=== PATIENT | female | born 1970 | race Caucasian/White ===

== ENCOUNTER 2016-10-09 17:17 | Emergency (ER) | payer OTHER ==
[~2016-10-09] VITALS: Wt 120.2 kg
[~2016-10-09 17:17] MED LIST: ACETAMINOPHEN; ALBUTEROL0.09 MG/A2 IH; AMITRIPTYLINE150 M1 PO; AMITRIPTYLINE50 MG PO; AMLODIPINE BESY1 TAB PO; AMOXICILLIN500 MG PO; ANAPROX DS550 MG PO; APRISO0.375 GM PO; ASACOL400 MG PO; ATIVAN0.5 MG PO; ATIVAN1 MG PO; ATROVENT I0.5 MG/2.5 INH; AZITHROMYCIN250 MG PO; AZITHROMYCIN500 MG PO; CARVEDILOL6.25 MG PO; CEFZIL500 MG PO; CELEXA40 MG PO; CITALOPRAM40 MG PO; CLARITIN10 MG PO; CLEOCIN HCL300 MG PO; COLCHICINE0.6 MG PO; COREG6.25 MG PO; CYCLOBENZAPRINE10 MG PO; DAYPRO600 M1 PO; DIFLUCAN150 MG PO; DITROPAN XL10 MG PO; DITROPAN XL5 MG PO; DONNATAL1 TAB PO; DOXYCYCLINE MO100 MG PO; EASIVENT CHAMBE1 KIT DEVI; EASY TOUCH; ELAVIL150 MG PO; FLAGYL500 MG PO; FLEXERIL10 MG PO; FLONASE0.05 MG/AC NS; FLUTICASON0.05 MG/A1 NAS; Fioricet 325 MG1 TAB PO; GLIPIZIDE ER2.5 MG PO; GOOD NEIGHBOR L10 MG PO; Glipizide2.5 MG PO; HYDRO; IBU800 M1 PO; IBU800 MG PO; IMURAN50 MG PO; INDOCIN25 MG; INDOCIN25 MG PO; LANTUS SOLOS100 U/M1 SC; LANTUS100 U/ML SC; LEVEMIR100 U/ML SC; LISINOPRIL30 MG PO; M2 MAGNESIUM100 MG PO; MAG-OX 400400 MG PO; MELATONIN1 MG PO; MELATONIN10 M2 PO; MELATONIN5 M2 PO; MELOXICAM7.5 MG PO; METFORMIN HYD1000 MG PO; METFORMIN1000 MG PO; NAPROSYN500 MG PO; NORVASC10 MG PO; NOVOLOG FLEX100 U/ML SC; NOVOLOG100 U/ML SC; OMEPRAZOLE40 MG PO; OXYBUTYNIN CHLO10 MG PO; OXYBUTYNIN CHLOR5 M1 PO; PHENERGAN12.5 M1 PO; PREDNICOT20 MG PO; PRILOSEC20 MG PO; PROAIR HFA0.09 MG/AC IH; PROVENTIL0.09 MG/AC IH; PULMICORT0.2 MG/ACT IH; REQUIP0.5 MG PO; RESTORIL30 MG PO; ROBITUSSIN AC 110 ML PO; ROBITUSSIN CF PO; ROBITUSSIN DM 105 ML PO; SALINE MIST 4545 ML NAS; SIMVASTATIN20 MG PO; SINGULAIR10 MG PO; SYMBICORT1 AE1 INH; TESSALON PERLE200 MG PO; TORADOL10 MG PO; VENTOLIN H0.09 MG/AC INH; VIBRAMYCIN100 MG PO; VICO10300 PO; VICODIN 5/500 505 MG PO; VICODIN ES 7501 TA1 PO; Ventolin 02.5 MG/3 M INH; XANAX1 MG PO; ZANAFLEX4 M1 PO; ZITHROMAX Z PA250 MG PO; ZITHROMAX Z-PA250 MG PO; ZITHROMAX250 MG PO; ZOCOR20 MG PO; ZOFRAN4 MG PO; ZYLOPRIM300 MG PO; [UNRECOGNIZED DRUG - OTHER]; [UNRECOGNIZED DRUG - SUPPLY]
[2016-10-09] MEDS ORDERED: VALTREX1 GM PO (18:44)
[2016-10-09] MEDS ORDERED: MEDROL DOSEPAK4 MG PO (18:44)
[2016-10-09] MEDS ORDERED: ARTIFICIAL TEA1 EACH OP (18:44)
[2016-11-12] MEDS ORDERED: CLARITIN10 MG PO (18:41)
[2016-11-12] MEDS ORDERED: EFFEXOR XR150 MG PO (18:42)
[2016-11-12] MEDS ORDERED: DOXEPIN50 MG PO (18:42)
[2016-11-12] MEDS ORDERED: KLONOPIN1 M1 PO (18:43)
[2016-11-12] MEDS ORDERED: KLONOPIN2 M1 PO (18:43)
[2016-11-12] MEDS ORDERED: BUSPIRONE10 MG PO (18:44)
[2016-11-12] MEDS ORDERED: NEURONTIN800 MG PO (18:45)
[2016-11-12] MEDS ORDERED: VITAMIN D1000 IU PO (18:46)
[2016-11-12] MEDS ORDERED: REXULTI3 MG PO (18:46)
[2016-11-12] MEDS ORDERED: CLONIDINE0.2 MG PO (18:59)
[2016-11-14] MEDS ORDERED: D-1000 185 MG-11 TAB PO (09:37)
[2016-11-14] MEDS ORDERED: CLARITIN10 MG PO (09:37)
[2016-11-14] MEDS ORDERED: B121000 MCG/1 IM (09:37)
[2016-11-14] MEDS ORDERED: PREDNISONE10 MG PO (09:37)
[2016-11-14] MEDS ORDERED: LEVAQUIN750 M1 PO (09:37)
[2016-11-14] MEDS ORDERED: VITAMIN B-12100 MCG PO (10:01)
== END 2016-10-09 18:50 | disposition home or self-care (01) ==
LOC: ED 17:17
DX: G51.0 Bell's palsy (principal); R06.02 Shortness of breath; Z88.0 Allergy status to penicillin; Z88.1 Allergy status to other antibiotic agents; Z88.6 Allergy status to analgesic agent; Z88.8 Allergy status to other drugs, medicaments and biological substances; Z88.2 Allergy status to sulfonamides; Z79.899 Other long term (current) drug therapy

== ENCOUNTER → 2017-06-11 | Outpatient (CLI) | payer OTHER ==
[~2017-06-11] MED LIST changes: +ARTIFICIAL TEA1 EACH OP; +B121000 MCG/1 IM; +BUSPIRONE10 MG PO; +CLONIDINE0.2 MG PO; +D-1000 185 MG-11 TAB PO; +DOXEPIN50 MG PO; +EFFEXOR XR150 MG PO; +KLONOPIN1 M1 PO; +KLONOPIN2 M1 PO; +LEVAQUIN750 M1 PO; +MEDROL DOSEPAK4 MG PO; +NEURONTIN800 MG PO; +PREDNISONE10 MG PO; +REXULTI3 MG PO; +VALTREX1 GM PO; +VITAMIN B-12100 MCG PO; +VITAMIN D1000 IU PO
[2017-06-11 12:12] LABS: BASO # 0.1 10*3/uL (0.0-0.1); BASO % 0.7 % (0.0-1.0); EOS # 0.3 10*3/uL (0.0-0.4); EOS % 1.7 % (1.0-4.0); HEMATOCRIT 44.8 % (37.0-47.0); HEMOGLOBIN 14.4 g/dl (12.0-16.0); LYMPH # 3.5 10*3/uL (1.3-4.4); LYMPH % 23.2 % (27.0-41.0); MEAN CELL VOLUME 80.3 fl (81.0-99.0); MEAN CORPUSCULAR HGB 25.8 pg (27.0-31.0); MEAN CORPUSCULAR HGB CONC 32.1 g/dl (33.0-37.0); MEAN PLATELET VOLUME 11.3 fl (9.6-12.3); MONO # 0.9 10*3/uL (0.1-1.0); MONO % 5.7 % (3.0-9.0); NEUT # 10.2 10*3/uL (2.3-7.9); NEUT % 68.2 % (47.0-73.0); PLATELET COUNT AUTOMATED 348 10*3/uL (130-400); RED BLOOD COUNT 5.58 10*6/uL (4.10-5.10); RED CELL DISTRI WIDTH 15.2 % (0-14.5); WHITE BLOOD COUNT 14.9 10*3/uL (4.8-10.8)
[2017-06-11 12:45] LABS: ALBUMIN 3.8 gm/dl (3.1-4.5); ALKALINE PHOSPHATASE 104 U/L (45-117); BUN 11 mg/dl (7-24); CHLORIDE 102 mmol/L (98-107); CHOLESTEROL 164 mg/dL (<200); CREATININE 0.74 mg/dL (0.55-1.02); HDL CHOLESTEROL 43 mg/dl (40-60); LDL CHOLESTEROL 65 mg/dL (9-159); POTASSIUM 4.2 mmol/L (3.5-5.1); SGOT/AST 10 IU/L (3-35); SGPT/ALT 17 U/L (12-78); SODIUM 139 mmol/L (136-145); TOTAL PROTEIN 8.1 gm/dL (6.4-8.2); TRIGLYCERIDES 281 mg/dl (<150); VLDL CHOLESTEROL 56 mg/dL (6-40)
[2017-06-11 13:36] LABS: VITAMIN D, 25-HYDROXY 6.3 ng/mL (30-100)
== END | disposition home or self-care (01) ==
LOC: LAB 01:30 → RESCLI 01:30
PROVIDERS: Internal Medicine Hospice and Palliative Medicine
DX: E11.65 Type 2 diabetes mellitus with hyperglycemia (principal); E55.9 Vitamin D deficiency, unspecified; E78.2 Mixed hyperlipidemia; E53.8 Deficiency of other specified B group vitamins; K21.9 Gastro-esophageal reflux disease without esophagitis; I10 Essential (primary) hypertension; F41.8 Other specified anxiety disorders; N32.81 Overactive bladder; J30.2 Other seasonal allergic rhinitis; E66.01 Morbid (severe) obesity due to excess calories; M1A.09X0 Idiopathic chronic gout, multiple sites, without tophus (tophi); M19.90 Unspecified osteoarthritis, unspecified site

== ENCOUNTER 2017-07-19 22:18 | Emergency (ER) | payer OTHER ==
[~2017-07-19] VITALS: Ht 154.9 cm; Wt 108.4 kg
[2017-07-19] MEDS ORDERED: TRAMADOL HCL50 MG PO (23:59)
== END 2017-07-19 23:48 | disposition home or self-care (01) ==
LOC: ED 22:18
DX: S05.01XA Injury of conjunctiva and corneal abrasion without foreign body, right eye, initial encounter (principal); K21.9 Gastro-esophageal reflux disease without esophagitis; E78.00 Pure hypercholesterolemia, unspecified; M10.9 Gout, unspecified; G43.909 Migraine, unspecified, not intractable, without status migrainosus; E66.01 Morbid (severe) obesity due to excess calories; E11.65 Type 2 diabetes mellitus with hyperglycemia; I10 Essential (primary) hypertension; Z90.89 Acquired absence of other organs; Z98.51 Tubal ligation status; Z98.890 Other specified postprocedural states; Z79.899 Other long term (current) drug therapy; Z88.1 Allergy status to other antibiotic agents; Z88.5 Allergy status to narcotic agent; Z91.040 Latex allergy status; Z88.6 Allergy status to analgesic agent; Z88.8 Allergy status to other drugs, medicaments and biological substances; Z88.0 Allergy status to penicillin; Z79.4 Long term (current) use of insulin; X58.XXXA Exposure to other specified factors, initial encounter; Y93.89 Activity, other specified; Y92.89 Other specified places as the place of occurrence of the external cause; Y99.9 Unspecified external cause status

== ENCOUNTER 2017-07-24 16:17 | Emergency (ER) | payer OTHER ==
[~2017-07-24] VITALS: Ht 154.9 cm; Wt 108.4 kg
[~2017-07-24 16:17] MED LIST changes: +TRAMADOL HCL50 MG PO
[2017-07-24] MEDS ORDERED: AMLODIPINE BESY10 MG PO (17:00)
[2017-07-24] MEDS ORDERED: DOXEPIN HCL50 MG PO (17:03)
[2017-07-25 07:07] LABS: HEPATITIS B SURFACE AG Negative (Negative); HEPATITIS C AB <0.1 (0.0-0.9); HIV 1+2 AB + HIV1 P24 AG Non Reactive (Non Reactive)
== END 2017-07-24 16:41 | disposition home or self-care (01) ==
LOC: ED 16:17
PROVIDERS: Physician Assistant
DX: S61.031A Puncture wound without foreign body of right thumb without damage to nail, initial encounter (principal); W27.3XXA Contact with needle (sewing), initial encounter; Y93.E5 Activity, floor mopping and cleaning; Y92.59 Other trade areas as the place of occurrence of the external cause; Y99.8 Other external cause status; Z88.1 Allergy status to other antibiotic agents; Z88.6 Allergy status to analgesic agent; Z88.0 Allergy status to penicillin; Z88.2 Allergy status to sulfonamides; Z91.040 Latex allergy status; Z88.8 Allergy status to other drugs, medicaments and biological substances

== ENCOUNTER → 2017-08-14 | Outpatient (CLI) | payer OTHER ==
[~2017-08-14] MED LIST changes: +AMLODIPINE BESY10 MG PO; +DOXEPIN HCL50 MG PO
[2017-08-14 12:06] LABS: BASO # 0.1 10*3/uL (0.0-0.1); BASO % 0.7 % (0.0-1.0); EOS # 0.3 10*3/uL (0.0-0.4); EOS % 2.5 % (1.0-4.0); HEMATOCRIT 40.8 % (37.0-47.0); HEMOGLOBIN 13.1 g/dl (12.0-16.0); LYMPH # 2.5 10*3/uL (1.3-4.4); LYMPH % 23.8 % (27.0-41.0); MEAN CELL VOLUME 79.5 fl (81.0-99.0); MEAN CORPUSCULAR HGB 25.5 pg (27.0-31.0); MEAN CORPUSCULAR HGB CONC 32.1 g/dl (33.0-37.0); MEAN PLATELET VOLUME 11.4 fl (9.6-12.3); MONO # 0.6 10*3/uL (0.1-1.0); MONO % 5.8 % (3.0-9.0); NEUT # 7.1 10*3/uL (2.3-7.9); NEUT % 66.6 % (47.0-73.0); PLATELET COUNT AUTOMATED 299 10*3/uL (130-400); RED BLOOD COUNT 5.13 10*6/uL (4.10-5.10); RED CELL DISTRI WIDTH 14.6 % (0-14.5); WHITE BLOOD COUNT 10.6 10*3/uL (4.8-10.8)
[2017-08-14 12:27] LABS: THYROID STIM HORMONE (HS) 3.16 uIU/ml (0.358-4.75)
[2017-08-15 08:10] LABS: RHEUMATOID ARTHRITIS FACTOR 20.5 IU/mL (0.0-13.9)
[2017-08-15 11:03] LABS: SJOGREN ANTI-SS-A <0.2 AI (0.0-0.9); SJOREN AB, ANTI-SS-B <0.2 AI (0.0-0.9)
[2017-08-15 17:09] LABS: ANGIOTENSIN-CONVERTING ENZYME 11 U/L (14-82)
== END | disposition home or self-care (01) ==
LOC: LAB 11:22
PROVIDERS: Optometrist
DX: H16.223 Keratoconjunctivitis sicca, not specified as Sjogren's, bilateral (principal)

== ENCOUNTER 2017-11-15 18:35 | Emergency (ER) | payer OTHER ==
[~2017-11-15] VITALS: Wt 113.4 kg
[2017-11-15] MEDS ORDERED: ALLOPURINOL300 MG PO (18:38)
[2017-11-15 19:37] LABS: BASO # 0.1 10*3/uL (0.0-0.1); BASO % 0.6 % (0.0-1.0); EOS # 0.4 10*3/uL (0.0-0.4); EOS % 3.4 % (1.0-4.0); HEMATOCRIT 41.8 % (37.0-47.0); HEMOGLOBIN 13.6 g/dl (12.0-16.0); LYMPH # 3.1 10*3/uL (1.3-4.4); LYMPH % 25.3 % (27.0-41.0); MEAN CELL VOLUME 80.5 fl (81.0-99.0); MEAN CORPUSCULAR HGB 26.2 pg (27.0-31.0); MEAN CORPUSCULAR HGB CONC 32.5 g/dl (33.0-37.0); MEAN PLATELET VOLUME 11.3 fl (9.6-12.3); MONO # 0.8 10*3/uL (0.1-1.0); MONO % 6.6 % (3.0-9.0); NEUT # 7.7 10*3/uL (2.3-7.9); NEUT % 63.3 % (47.0-73.0); PLATELET COUNT AUTOMATED 298 10*3/uL (130-400); RED BLOOD COUNT 5.19 10*6/uL (4.10-5.10); RED CELL DISTRI WIDTH 13.6 % (0-14.5); WHITE BLOOD COUNT 12.2 10*3/uL (4.8-10.8)
[2017-11-15 19:58] LABS: ALBUMIN 3.5 gm/dl (3.1-4.5); ALKALINE PHOSPHATASE 120 U/L (45-117); BUN 9 mg/dl (7-24); CHLORIDE 98 mmol/L (98-107); CREATININE 0.98 mg/dL (0.55-1.02); POTASSIUM 4.1 mmol/L (3.5-5.1); SGOT/AST 45 IU/L (3-35); SGPT/ALT 37 U/L (12-78); SODIUM 134 mmol/L (136-145); TOTAL PROTEIN 7.3 gm/dL (6.4-8.2)
[2017-11-15] MEDS ORDERED: DUONEB 3 MG/3 ML3 M1 INH (20:54)
[2017-11-15] MEDS ORDERED: NEBULIZER (20:54)
[2017-11-15] MEDS ORDERED: CLINDAMYCIN HC300 MG PO (20:55)
[2017-11-15] MEDS ORDERED: CEPHALEXIN500 M1 PO (20:55)
[2017-11-15] MEDS ORDERED: DIFLUCAN150 MG PO (20:55)
== END 2017-11-15 20:57 | disposition home or self-care (01) ==
LOC: ED 18:35
PROVIDERS: Nurse Practitioner Family
DX: J40 Bronchitis, not specified as acute or chronic (principal); A46 Erysipelas; J44.1 Chronic obstructive pulmonary disease with (acute) exacerbation; K21.9 Gastro-esophageal reflux disease without esophagitis; I10 Essential (primary) hypertension; E66.01 Morbid (severe) obesity due to excess calories; E11.9 Type 2 diabetes mellitus without complications; G51.0 Bell's palsy; Z88.8 Allergy status to other drugs, medicaments and biological substances

== ENCOUNTER 2017-11-22 17:41 | Emergency (ER) | payer OTHER ==
[~2017-11-22] VITALS: Ht 154.9 cm; Wt 124.7 kg
[~2017-11-22 17:41] MED LIST changes: +ALLOPURINOL300 MG PO; +CEPHALEXIN500 M1 PO; +CLINDAMYCIN HC300 MG PO; +DUONEB 3 MG/3 ML3 M1 INH; +NEBULIZER
== END 2017-11-22 19:00 | disposition home or self-care (01) ==
LOC: ED 17:41
DX: M25.551 Pain in right hip (principal); E11.9 Type 2 diabetes mellitus without complications; Z88.0 Allergy status to penicillin; Z88.1 Allergy status to other antibiotic agents; Z88.2 Allergy status to sulfonamides; Z88.8 Allergy status to other drugs, medicaments and biological substances; Z91.040 Latex allergy status; Z88.6 Allergy status to analgesic agent; Z79.899 Other long term (current) drug therapy

== ENCOUNTER → 2017-12-08 | Outpatient (CLI) | payer OTHER ==
[2017-12-08 16:24] LABS: FREE T4 1.3 ng/dl (0.76-1.46); THYROID STIM HORMONE (HS) 1.22 uIU/ml (0.358-4.75)
[2017-12-09 14:08] LABS: ANA DIRECT Positive (Negative); SJOGREN ANTI-SS-A <0.2 AI (0.0-0.9); SJOREN AB, ANTI-SS-B <0.2 AI (0.0-0.9)
[2017-12-11 00:02] LABS: CCP ANTIBODIES IGG/IGA 25 units (0-19)
== END | disposition home or self-care (01) ==
LOC: LAB 02:13 → RESCLI 02:13
PROVIDERS: Emergency Medicine
DX: E11.9 Type 2 diabetes mellitus without complications (principal); I10 Essential (primary) hypertension; K21.9 Gastro-esophageal reflux disease without esophagitis; M19.90 Unspecified osteoarthritis, unspecified site; G62.9 Polyneuropathy, unspecified

== ENCOUNTER → 2017-12-11 | Outpatient (CLI) | payer OTHER ==
[2017-12-11 13:13] LABS: BASO # 0.1 10*3/uL (0.0-0.1); BASO % 0.9 % (0.0-1.0); EOS # 0.3 10*3/uL (0.0-0.4); EOS % 3.1 % (1.0-4.0); HEMATOCRIT 41.5 % (37.0-47.0); HEMOGLOBIN 13.5 g/dl (12.0-16.0); LYMPH # 2.5 10*3/uL (1.3-4.4); LYMPH % 30.3 % (27.0-41.0); MEAN CELL VOLUME 81.4 fl (81.0-99.0); MEAN CORPUSCULAR HGB 26.5 pg (27.0-31.0); MEAN CORPUSCULAR HGB CONC 32.5 g/dl (33.0-37.0); MEAN PLATELET VOLUME 11.2 fl (9.6-12.3); MONO # 0.6 10*3/uL (0.1-1.0); NEUT # 4.8 10*3/uL (2.3-7.9); PLATELET COUNT AUTOMATED 277 10*3/uL (130-400); RED CELL DISTRI WIDTH 13.4 % (0-14.5); WHITE BLOOD COUNT 8.2 10*3/uL (4.8-10.8)
[2017-12-11 13:37] LABS: ALBUMIN 3.6 gm/dl (3.1-4.5); ALKALINE PHOSPHATASE 111 U/L (45-117); BUN 7 mg/dl (7-24); CHLORIDE 97 mmol/L (98-107); CREATININE 0.71 mg/dL (0.55-1.02); POTASSIUM 4.3 mmol/L (3.5-5.1); SGOT/AST 48 IU/L (3-35); SGPT/ALT 44 U/L (12-78); SODIUM 134 mmol/L (136-145); TOTAL PROTEIN 7.1 gm/dL (6.4-8.2)
[2017-12-11 14:12] LABS: VITAMIN D, 25-HYDROXY 8.9 ng/mL (30-100)
== END | disposition home or self-care (01) ==
LOC: LAB 12:48
PROVIDERS: Emergency Medicine
DX: E11.9 Type 2 diabetes mellitus without complications (principal); K21.9 Gastro-esophageal reflux disease without esophagitis; E55.9 Vitamin D deficiency, unspecified; E53.8 Deficiency of other specified B group vitamins

== ENCOUNTER 2018-02-07 21:43 | Emergency (ER) | payer OTHER ==
[~2018-02-07] VITALS: Ht 152.4 cm; Wt 130.2 kg
[2018-02-07] MEDS ORDERED: TOBRADEX 0.3-0.15 ML OPH (21:56)
[2018-02-07] MEDS ORDERED: VITAMIN D50000 UNIT PO (21:56)
[2018-02-07] MEDS ORDERED: BASAG SOL SQ (21:58)
[2018-02-07] MEDS ORDERED: NOVOLOG100 UNIT/1 SQ (21:58)
[2018-02-07 22:21] LABS: BASO # 0.1 10*3/uL (0.0-0.1); BASO % 0.7 % (0.0-1.0); EOS # 0.3 10*3/uL (0.0-0.4); EOS % 2.9 % (1.0-4.0); HEMATOCRIT 39.7 % (37.0-47.0); HEMOGLOBIN 12.5 g/dl (12.0-16.0); LYMPH % 29.8 % (27.0-41.0); MEAN CELL VOLUME 78.6 fl (81.0-99.0); MEAN CORPUSCULAR HGB 24.8 pg (27.0-31.0); MEAN CORPUSCULAR HGB CONC 31.5 g/dl (33.0-37.0); MEAN PLATELET VOLUME 10.8 fl (9.6-12.3); MONO # 0.7 10*3/uL (0.1-1.0); NEUT % 58.9 % (47.0-73.0); PLATELET COUNT AUTOMATED 287 10*3/uL (130-400); RED BLOOD COUNT 5.05 10*6/uL (4.10-5.10); WHITE BLOOD COUNT 10.1 10*3/uL (4.8-10.8)
[2018-02-07 22:33] LABS: ACT PARTIAL THROMBO TIME 23.8 SECONDS (20.8-31.5)
[2018-02-07 22:38] LABS: ALBUMIN 3.4 gm/dl (3.1-4.5); ALKALINE PHOSPHATASE 102 U/L (45-117); BUN 7 mg/dl (7-24); CHLORIDE 102 mmol/L (98-107); CREATININE 0.64 mg/dL (0.55-1.02); POTASSIUM 3.4 mmol/L (3.5-5.1); SGOT/AST 70 IU/L (3-35); SGPT/ALT 51 U/L (12-78); SODIUM 138 mmol/L (136-145); TOTAL PROTEIN 6.9 gm/dL (6.4-8.2)
[2018-02-07 22:39] LABS: TROPONIN I < 0.015 ng/ml (<0.045)
== END 2018-02-08 02:03 | disposition left against medical advice (07) ==
LOC: ED 21:43
PROVIDERS: Emergency Medicine
DX: R07.9 Chest pain, unspecified (principal); F41.9 Anxiety disorder, unspecified; R06.02 Shortness of breath; D89.89 Other specified disorders involving the immune mechanism, not elsewhere classified; R60.9 Edema, unspecified; Z98.51 Tubal ligation status; Z90.89 Acquired absence of other organs; Z79.4 Long term (current) use of insulin; Z79.899 Other long term (current) drug therapy; Z88.1 Allergy status to other antibiotic agents; Z88.5 Allergy status to narcotic agent; Z88.0 Allergy status to penicillin; Z91.040 Latex allergy status; Z88.3 Allergy status to other anti-infective agents

== ENCOUNTER → 2018-03-09 | Outpatient (CLI) | payer OTHER ==
[~2018-03-09] MED LIST changes: +BASAG SOL SQ; +KETOROLAC10 MG PO; +NOVOLOG100 UNIT/1 SQ; +TOBRADEX 0.3-0.15 ML OPH; +VITAMIN D50000 UNIT PO
[2018-03-09 15:20] LABS: BASO # 0.1 10*3/uL (0.0-0.1); BASO % 0.8 % (0.0-1.0); EOS # 0.2 10*3/uL (0.0-0.4); EOS % 1.6 % (1.0-4.0); HEMATOCRIT 41.7 % (37.0-47.0); LYMPH % 26.8 % (27.0-41.0); MEAN CELL VOLUME 78.2 fl (81.0-99.0); MEAN CORPUSCULAR HGB 24.4 pg (27.0-31.0); MEAN CORPUSCULAR HGB CONC 31.2 g/dl (33.0-37.0); MEAN PLATELET VOLUME 10.7 fl (9.6-12.3); MONO # 0.6 10*3/uL (0.1-1.0); MONO % 5.4 % (3.0-9.0); NEUT # 7.3 10*3/uL (2.3-7.9); NEUT % 64.8 % (47.0-73.0); PLATELET COUNT AUTOMATED 304 10*3/uL (130-400); RED BLOOD COUNT 5.33 10*6/uL (4.10-5.10); RED CELL DISTRI WIDTH 15.2 % (0-14.5); WHITE BLOOD COUNT 11.2 10*3/uL (4.8-10.8)
[2018-03-09 15:52] LABS: ALBUMIN 3.7 gm/dl (3.1-4.5); ALKALINE PHOSPHATASE 104 U/L (45-117); BUN 6 mg/dl (7-24); CHLORIDE 99 mmol/L (98-107); CREATININE 0.62 mg/dL (0.55-1.02); HDL CHOLESTEROL 36 mg/dl (40-60); POTASSIUM 3.9 mmol/L (3.5-5.1); SODIUM 135 mmol/L (136-145); TOTAL PROTEIN 7.4 gm/dL (6.4-8.2)
[2018-03-09 15:58] LABS: CHOLESTEROL 115 mg/dL (<200); LDL CHOLESTEROL 33 mg/dL (9-159); SGOT/AST 99 IU/L (3-35); SGPT/ALT 43 U/L (12-78); TRIGLYCERIDES 230 mg/dl (<150); VITAMIN D, 25-HYDROXY 23.8 ng/mL (30-100); VLDL CHOLESTEROL 46 mg/dL (6-40)
== END | disposition home or self-care (01) ==
LOC: RESCLI 04:06
PROVIDERS: Internal Medicine Hospice and Palliative Medicine
DX: I10 Essential (primary) hypertension (principal); K21.9 Gastro-esophageal reflux disease without esophagitis; E78.2 Mixed hyperlipidemia; F41.8 Other specified anxiety disorders; E11.65 Type 2 diabetes mellitus with hyperglycemia; J44.0 Chronic obstructive pulmonary disease with (acute) lower respiratory infection; E66.01 Morbid (severe) obesity due to excess calories; J30.2 Other seasonal allergic rhinitis; E55.9 Vitamin D deficiency, unspecified; M19.90 Unspecified osteoarthritis, unspecified site; E53.8 Deficiency of other specified B group vitamins; M1A.09X0 Idiopathic chronic gout, multiple sites, without tophus (tophi); N32.81 Overactive bladder; F43.10 Post-traumatic stress disorder, unspecified; G62.9 Polyneuropathy, unspecified; L03.811 Cellulitis of head [any part, except face]; F32.9 Major depressive disorder, single episode, unspecified; Z88.0 Allergy status to penicillin; Z88.2 Allergy status to sulfonamides

== ENCOUNTER 2018-03-10 18:00 | Emergency (ER) | payer OTHER ==
[~2018-03-10 18:00] MED LIST changes: -KETOROLAC10 MG PO
[2018-03-10] MEDS ORDERED: NAPROSYN500 MG PO (18:06)
[2018-03-10] MEDS ORDERED: CEPHALEXIN500 M1 PO (18:06)
== END 2018-03-10 18:12 | disposition home or self-care (01) ==
LOC: ED 18:00
DX: L02.811 Cutaneous abscess of head [any part, except face] (principal); Z98.51 Tubal ligation status; Z79.4 Long term (current) use of insulin; Z88.2 Allergy status to sulfonamides; Z88.1 Allergy status to other antibiotic agents; Z91.040 Latex allergy status; Z88.5 Allergy status to narcotic agent; Z88.0 Allergy status to penicillin

== ENCOUNTER 2018-04-06 20:40 | Emergency (ER) | payer OTHER ==
[~2018-04-06] VITALS: Ht 162.5 cm; Wt 108.9 kg
[2018-04-06] MEDS ORDERED: CLINDAMYCIN HC300 MG PO (21:20)
[2018-04-06] MEDS ORDERED: KETOROLAC10 MG PO (21:20)
== END 2018-04-06 22:00 | disposition home or self-care (01) ==
LOC: ED 20:40
DX: L08.9 Local infection of the skin and subcutaneous tissue, unspecified (principal); K21.9 Gastro-esophageal reflux disease without esophagitis; G43.909 Migraine, unspecified, not intractable, without status migrainosus; E11.65 Type 2 diabetes mellitus with hyperglycemia; I10 Essential (primary) hypertension; Z98.51 Tubal ligation status; Z98.890 Other specified postprocedural states; Z90.89 Acquired absence of other organs; Z79.899 Other long term (current) drug therapy; Z79.4 Long term (current) use of insulin; Z88.0 Allergy status to penicillin; Z88.2 Allergy status to sulfonamides; Z88.1 Allergy status to other antibiotic agents; Z91.040 Latex allergy status; Z88.6 Allergy status to analgesic agent; Z86.14 Personal history of Methicillin resistant Staphylococcus aureus infection

== ENCOUNTER → 2018-06-09 | Outpatient (CLI) | payer OTHER ==
[~2018-06-09] MED LIST changes: +KETOROLAC10 MG PO
== END | disposition home or self-care (01) ==
LOC: RESCLI 01:10 → RAD 01:10 → RESCLI 10:01
DX: M79.641 Pain in right hand (principal); I10 Essential (primary) hypertension; K21.9 Gastro-esophageal reflux disease without esophagitis; F41.8 Other specified anxiety disorders; J44.0 Chronic obstructive pulmonary disease with (acute) lower respiratory infection; N32.81 Overactive bladder; J30.2 Other seasonal allergic rhinitis; E66.01 Morbid (severe) obesity due to excess calories; E78.2 Mixed hyperlipidemia; E55.9 Vitamin D deficiency, unspecified; E11.65 Type 2 diabetes mellitus with hyperglycemia; M19.90 Unspecified osteoarthritis, unspecified site; E53.8 Deficiency of other specified B group vitamins; M1A.09X0 Idiopathic chronic gout, multiple sites, without tophus (tophi); F43.10 Post-traumatic stress disorder, unspecified; G62.9 Polyneuropathy, unspecified; G44.219 Episodic tension-type headache, not intractable; B37.3 Candidiasis of vulva and vagina; Z79.899 Other long term (current) drug therapy; Z88.0 Allergy status to penicillin; Z88.8 Allergy status to other drugs, medicaments and biological substances

== ENCOUNTER 2018-07-06 22:55 | Emergency (ER) | payer OTHER ==
[~2018-07-06] VITALS: Ht 154.9 cm; Wt 124.7 kg
[2018-07-06] MEDS ORDERED: CLINDAMYCIN HC300 MG PO (23:36)
[2018-07-06] MEDS ORDERED: CEPHALEXIN500 M1 PO (23:36)
== END 2018-07-06 23:40 | disposition home or self-care (01) ==
LOC: ED 22:55
DX: L03.211 Cellulitis of face (principal); R60.0 Localized edema; J44.9 Chronic obstructive pulmonary disease, unspecified; I10 Essential (primary) hypertension; K21.9 Gastro-esophageal reflux disease without esophagitis; E78.00 Pure hypercholesterolemia, unspecified; G43.909 Migraine, unspecified, not intractable, without status migrainosus; E66.01 Morbid (severe) obesity due to excess calories; E11.9 Type 2 diabetes mellitus without complications; Z88.1 Allergy status to other antibiotic agents; Z88.5 Allergy status to narcotic agent; Z88.0 Allergy status to penicillin; Z88.2 Allergy status to sulfonamides; Z91.040 Latex allergy status; Z88.8 Allergy status to other drugs, medicaments and biological substances; Z79.899 Other long term (current) drug therapy; Z79.84 Long term (current) use of oral hypoglycemic drugs; Z98.890 Other specified postprocedural states

== ENCOUNTER 2018-09-05 15:26 | Emergency (ER) | payer OTHER ==
[~2018-09-05] VITALS: Wt 125.6 kg
[2018-09-05 15:47] LABS: BILIRUBIN NEGATIVE (NEGATIVE); BLOOD 1+ (NEGATIVE); CLARITY CLEAR (CLEAR); COLOR YELLOW (YELLOW); GLUCOSE 3+ (NEGATIVE); KETONE 1+ (NEGATIVE); LEUKO ESTERASE NEGATIVE (NEGATIVE); NITRITE NEGATIVE (NEGATIVE); SPECIFIC GRAVITY 1.015 (1.005-1.030); UROBILINOGEN 0.2 E.U./dl (0.2-1.0)
[2018-09-05 15:50] LABS: BASO # 0.1 10*3/uL (0.0-0.1); BASO % 0.7 % (0.0-1.0); EOS # 0.2 10*3/uL (0.0-0.4); EOS % 1.7 % (1.0-4.0); HEMATOCRIT 44.5 % (37.0-47.0); HEMOGLOBIN 13.7 g/dl (12.0-16.0); LYMPH # 2.8 10*3/uL (1.3-4.4); LYMPH % 20.1 % (27.0-41.0); MEAN CELL VOLUME 75.2 fl (81.0-99.0); MEAN CORPUSCULAR HGB 23.1 pg (27.0-31.0); MEAN CORPUSCULAR HGB CONC 30.8 g/dl (33.0-37.0); MEAN PLATELET VOLUME 10.6 fl (9.6-12.3); MONO # 0.8 10*3/uL (0.1-1.0); MONO % 5.7 % (3.0-9.0); PLATELET COUNT AUTOMATED 367 10*3/uL (130-400); RED BLOOD COUNT 5.92 10*6/uL (4.10-5.10); WHITE BLOOD COUNT 14.1 10*3/uL (4.8-10.8)
[2018-09-05 15:59] LABS: BACTERIA TRACE
[2018-09-05 16:09] LABS: ALBUMIN 3.8 gm/dl (3.1-4.5); ALKALINE PHOSPHATASE 117 U/L (45-117); BUN 9 mg/dl (7-24); CHLORIDE 101 mmol/L (98-107); CREATININE 0.71 mg/dL (0.55-1.02); POTASSIUM 4.2 mmol/L (3.5-5.1); SGOT/AST 66 IU/L (3-35); SGPT/ALT 54 U/L (12-78); SODIUM 139 mmol/L (136-145); TOTAL PROTEIN 8.4 gm/dL (6.4-8.2)
[2018-09-05] MEDS ORDERED: ZOFRAN4 MG PO (17:25)
== END 2018-09-05 17:28 | disposition home or self-care (01) ==
LOC: ED 15:26
PROVIDERS: Nurse Practitioner Family
DX: R31.9 Hematuria, unspecified (principal); I10 Essential (primary) hypertension; J44.9 Chronic obstructive pulmonary disease, unspecified; K21.9 Gastro-esophageal reflux disease without esophagitis; E78.00 Pure hypercholesterolemia, unspecified; G43.909 Migraine, unspecified, not intractable, without status migrainosus; E66.01 Morbid (severe) obesity due to excess calories; E11.9 Type 2 diabetes mellitus without complications; Z88.1 Allergy status to other antibiotic agents; Z88.6 Allergy status to analgesic agent; Z88.8 Allergy status to other drugs, medicaments and biological substances; Z79.899 Other long term (current) drug therapy; Z79.84 Long term (current) use of oral hypoglycemic drugs; Z79.4 Long term (current) use of insulin; Z98.890 Other specified postprocedural states

== ENCOUNTER → 2018-09-22 | Outpatient (CLI) | payer OTHER | END | disposition home or self-care (01) | LOC: RESCLI 04:52 | DX: J44.0 Chronic obstructive pulmonary disease with (acute) lower respiratory infection (principal); I10 Essential (primary) hypertension; N32.81 Overactive bladder; K21.9 Gastro-esophageal reflux disease without esophagitis; F41.8 Other specified anxiety disorders; J30.2 Other seasonal allergic rhinitis; E66.01 Morbid (severe) obesity due to excess calories; E78.2 Mixed hyperlipidemia; E55.9 Vitamin D deficiency, unspecified; E11.65 Type 2 diabetes mellitus with hyperglycemia; M19.90 Unspecified osteoarthritis, unspecified site; E53.8 Deficiency of other specified B group vitamins; M1A.09X0 Idiopathic chronic gout, multiple sites, without tophus (tophi); F43.10 Post-traumatic stress disorder, unspecified; G62.9 Polyneuropathy, unspecified; G44.219 Episodic tension-type headache, not intractable; M25.561 Pain in right knee; Z79.899 Other long term (current) drug therapy; Z79.84 Long term (current) use of oral hypoglycemic drugs; Z88.0 Allergy status to penicillin; Z88.2 Allergy status to sulfonamides; Z91.040 Latex allergy status; Z91.030 Bee allergy status; Z88.8 Allergy status to other drugs, medicaments and biological substances; Z91.041 Radiographic dye allergy status ==

== ENCOUNTER 2018-11-17 20:09 | Emergency (ER) | payer OTHER ==
[2018-11-17 20:36] LABS: BASO # 0.1 10*3/uL (0.0-0.1); BASO % 0.4 % (0.0-1.0); EOS # 0.3 10*3/uL (0.0-0.4); EOS % 2.6 % (1.0-4.0); HEMATOCRIT 41.3 % (37.0-47.0); HEMOGLOBIN 12.7 g/dl (12.0-16.0); LYMPH # 2.4 10*3/uL (1.3-4.4); LYMPH % 20.6 % (27.0-41.0); MEAN CELL VOLUME 76.1 fl (81.0-99.0); MEAN CORPUSCULAR HGB 23.4 pg (27.0-31.0); MEAN CORPUSCULAR HGB CONC 30.8 g/dl (33.0-37.0); MEAN PLATELET VOLUME 10.3 fl (9.6-12.3); MONO % 8.3 % (3.0-9.0); NEUT # 7.9 10*3/uL (2.3-7.9); NEUT % 67.2 % (47.0-73.0); PLATELET COUNT AUTOMATED 297 10*3/uL (130-400); RED BLOOD COUNT 5.43 10*6/uL (4.10-5.10); RED CELL DISTRI WIDTH 17.9 % (0-14.5); WHITE BLOOD COUNT 11.8 10*3/uL (4.8-10.8)
[2018-11-17 20:51] LABS: ALBUMIN 3.3 gm/dl (3.1-4.5); ALKALINE PHOSPHATASE 115 U/L (45-117); BUN 6 mg/dl (7-24); CHLORIDE 103 mmol/L (98-107); CREATININE 0.69 mg/dL (0.55-1.02); POTASSIUM 3.6 mmol/L (3.5-5.1); SGOT/AST 58 IU/L (3-35); SGPT/ALT 49 U/L (12-78); SODIUM 137 mmol/L (136-145); TOTAL PROTEIN 7.3 gm/dL (6.4-8.2)
[2018-11-17] MEDS ORDERED: PREDNISONE10 MG PO (21:40)
[2018-11-17] MEDS ORDERED: TESSALON PERLE100 M1 PO (21:40)
[2018-11-17] MEDS ORDERED: CEPHALEXIN500 M1 PO (21:40)
== END 2018-11-17 21:59 | disposition home or self-care (01) ==
LOC: ED 20:09
PROVIDERS: Nurse Practitioner Family
DX: J20.9 Acute bronchitis, unspecified (principal); B27.90 Infectious mononucleosis, unspecified without complication; I10 Essential (primary) hypertension; K21.9 Gastro-esophageal reflux disease without esophagitis; E78.00 Pure hypercholesterolemia, unspecified; E66.01 Morbid (severe) obesity due to excess calories; G43.909 Migraine, unspecified, not intractable, without status migrainosus; E11.9 Type 2 diabetes mellitus without complications; J44.9 Chronic obstructive pulmonary disease, unspecified; Z88.1 Allergy status to other antibiotic agents; Z88.5 Allergy status to narcotic agent; Z88.2 Allergy status to sulfonamides; Z88.0 Allergy status to penicillin; Z91.040 Latex allergy status; Z91.048 Other nonmedicinal substance allergy status; Z88.8 Allergy status to other drugs, medicaments and biological substances; Z79.899 Other long term (current) drug therapy; Z79.84 Long term (current) use of oral hypoglycemic drugs; Z79.4 Long term (current) use of insulin; Z79.2 Long term (current) use of antibiotics

== ENCOUNTER → 2019-01-07 | Outpatient (CLI) | payer OTHER ==
[~2019-01-07] MED LIST changes: +TESSALON PERLE100 M1 PO
[2019-01-07 12:25] LABS: BASO # 0.1 10*3/uL (0.0-0.1); BASO % 0.8 % (0.0-1.0); EOS # 0.6 10*3/uL (0.0-0.4); EOS % 4.4 % (1.0-4.0); HEMATOCRIT 42.2 % (37.0-47.0); HEMOGLOBIN 13.1 g/dl (12.0-16.0); LYMPH # 3.2 10*3/uL (1.3-4.4); LYMPH % 25.3 % (27.0-41.0); MEAN CELL VOLUME 76.3 fl (81.0-99.0); MEAN CORPUSCULAR HGB 23.7 pg (27.0-31.0); MONO # 0.9 10*3/uL (0.1-1.0); MONO % 6.8 % (3.0-9.0); NEUT # 7.7 10*3/uL (2.3-7.9); NEUT % 61.8 % (47.0-73.0); PLATELET COUNT AUTOMATED 334 10*3/uL (130-400); RED BLOOD COUNT 5.53 10*6/uL (4.10-5.10); RED CELL DISTRI WIDTH 15.9 % (0-14.5); WHITE BLOOD COUNT 12.5 10*3/uL (4.8-10.8)
[2019-01-07 12:54] LABS: ALBUMIN 3.6 gm/dl (3.1-4.5); ALKALINE PHOSPHATASE 116 U/L (45-117); BUN 10 mg/dl (7-24); CHLORIDE 97 mmol/L (98-107); CHOLESTEROL 108 mg/dL (<200); CREATININE 0.82 mg/dL (0.55-1.02); HDL CHOLESTEROL 37 mg/dl (40-60); SGOT/AST 51 IU/L (3-35); SGPT/ALT 46 U/L (12-78); SODIUM 133 mmol/L (136-145); TOTAL PROTEIN 7.4 gm/dL (6.4-8.2); TRIGLYCERIDES 374 mg/dl (<150)
[2019-01-07 13:41] LABS: VITAMIN D, 25-HYDROXY 26.1 ng/mL (30-100)
== END | disposition home or self-care (01) ==
LOC: RESCLI 00:31 → LAB 00:31 → RESCLI 12:14
PROVIDERS: Internal Medicine
DX: M19.90 Unspecified osteoarthritis, unspecified site (principal); G44.219 Episodic tension-type headache, not intractable; E11.65 Type 2 diabetes mellitus with hyperglycemia; E55.9 Vitamin D deficiency, unspecified; E78.2 Mixed hyperlipidemia; J44.0 Chronic obstructive pulmonary disease with (acute) lower respiratory infection; F41.8 Other specified anxiety disorders; I10 Essential (primary) hypertension; G62.9 Polyneuropathy, unspecified; M1A.09X0 Idiopathic chronic gout, multiple sites, without tophus (tophi); E66.01 Morbid (severe) obesity due to excess calories; J30.2 Other seasonal allergic rhinitis; K21.9 Gastro-esophageal reflux disease without esophagitis; N32.81 Overactive bladder; Z79.899 Other long term (current) drug therapy; Z88.0 Allergy status to penicillin; Z88.2 Allergy status to sulfonamides; Z91.030 Bee allergy status; Z91.040 Latex allergy status; Z91.041 Radiographic dye allergy status; Z88.8 Allergy status to other drugs, medicaments and biological substances

== ENCOUNTER → 2019-04-20 | Outpatient (CLI) | payer OTHER ==
[2019-04-20 15:23] LABS: BASO # 0.1 10*3/uL (0.0-0.1); EOS # 0.4 10*3/uL (0.0-0.4); HEMATOCRIT 43.1 % (37.0-47.0); HEMOGLOBIN 12.9 g/dl (12.0-16.0); LYMPH % 23.6 % (27.0-41.0); MEAN CELL VOLUME 76.4 fl (81.0-99.0); MEAN CORPUSCULAR HGB 22.9 pg (27.0-31.0); MEAN CORPUSCULAR HGB CONC 29.9 g/dl (33.0-37.0); MEAN PLATELET VOLUME 11.5 fl (9.6-12.3); MONO # 0.8 10*3/uL (0.1-1.0); MONO % 6.5 % (3.0-9.0); NEUT # 8.1 10*3/uL (2.3-7.9); PLATELET COUNT AUTOMATED 347 10*3/uL (130-400); RED BLOOD COUNT 5.64 10*6/uL (4.10-5.10); RED CELL DISTRI WIDTH 16.7 % (0-14.5); WHITE BLOOD COUNT 12.5 10*3/uL (4.8-10.8)
[2019-04-20 15:47] LABS: ALBUMIN 3.9 gm/dl (3.1-4.5); BUN 13 mg/dl (7-24); CHLORIDE 100 mmol/L (98-107); CREATININE 0.77 mg/dL (0.55-1.02); PHOSPHOROUS 4.7 mg/dL (2.5-4.9); POTASSIUM 4.4 mmol/L (3.5-5.1); SGOT/AST 54 IU/L (3-35); SGPT/ALT 43 U/L (12-78); SODIUM 135 mmol/L (136-145); TOTAL PROTEIN 7.8 gm/dL (6.4-8.2)
[2019-04-20 15:56] LABS: ALKALINE PHOSPHATASE 124 U/L (45-117)
[2019-04-20 16:05] LABS: VITAMIN D, 25-HYDROXY 16.6 ng/mL (30-100)
== END | disposition home or self-care (01) ==
LOC: RESCLI 02:06
PROVIDERS: Emergency Medicine
DX: E11.65 Type 2 diabetes mellitus with hyperglycemia (principal); N32.81 Overactive bladder; M19.90 Unspecified osteoarthritis, unspecified site; G44.219 Episodic tension-type headache, not intractable; E55.9 Vitamin D deficiency, unspecified; E78.2 Mixed hyperlipidemia; J44.0 Chronic obstructive pulmonary disease with (acute) lower respiratory infection; I10 Essential (primary) hypertension; M1A.09X0 Idiopathic chronic gout, multiple sites, without tophus (tophi); E66.01 Morbid (severe) obesity due to excess calories; J30.2 Other seasonal allergic rhinitis; K21.9 Gastro-esophageal reflux disease without esophagitis; F41.8 Other specified anxiety disorders; G62.9 Polyneuropathy, unspecified; R00.0 Tachycardia, unspecified; F32.9 Major depressive disorder, single episode, unspecified; Z79.899 Other long term (current) drug therapy; Z87.891 Personal history of nicotine dependence